=== PATIENT | female | born 1935 | race Caucasian/White ===

== ENCOUNTER 2016-10-08 21:12 | Inpatient (IN) | payer MEDICARE, MEDICAID ==
[~2016-10-08] VITALS: Ht 139.7 cm; Wt 52.8 kg
[~2016-10-08 21:12] MED LIST: ACET-1600 PO; ALBU2.5V NPPB; ALBU90AE INH; ASPI-496 PO; ASPI-621 PO; CLON1PAT9 TD; FISH OIL OMEGA1 EACH PO; FURO-92 PO; GUAI-103 PO; HYDR25CA PO; LACT1CAP4 PO; MOME17SP NAS; MOME220A INH; NPH,100V SC; NPH,100V SQ; PRED10TA PO; PRED2.5T PO; SPIR25TA PO
[2016-10-08 22:08] LABS: BLOOD UREA NITROGEN 27 mg/dL (7-18)
[2016-10-08] MEDS ORDERED: FURO-93 PO (22:14)
[2016-10-08] MEDS ORDERED: LISI-167 PO (22:14)
[2016-10-08] MEDS ORDERED: ALBU18HF INH (22:14)
[2016-10-08] MEDS ORDERED: INSU100I13 SQ-INSULIN (22:14)
[2016-10-08] MEDS ORDERED: MOME13HF3 INH (22:14)
[2016-10-08] MEDS ORDERED: ALBU0.63 NEB (22:14)
[2016-10-08 22:17] LABS: IS PT STATUS REG ER OR PRE ER? YES
[2016-10-08] MEDS ORDERED: SODIUM CHLORIDE 0.9% 1,000ML IVBOLUS ONE (23:00)
[2016-10-08] MEDS ORDERED: SODIUM CHLORIDE 0.9% 1,000 ML IV ONE (23:13)
[2016-10-08] MEDS ORDERED: ACETAMINOPHEN 325 MG TABLET PO PRN (23:30)
[2016-10-08] MEDS ORDERED: ONDANSETRON 2MG/ML, 2ML IVPush PRN (23:30)
[2016-10-08] MEDS ORDERED: ONDANSETRON ODT 4 MG PO PRN (23:30)
[2016-10-08] MEDS ORDERED: MORPHINE SULFATE 4 MG/ML, 1ML IVPush PRN (23:30)
[2016-10-09 00:31] VITALS: BP 140/77
[2016-10-09] MEDS: methylPREDNISolone SOD SUCC 40 MG/ML IVPush SCH ×2 (01:22→15:07)
[2016-10-09] MEDS: FUROSEMIDE 20 MG/2 ML IV SCH ×2 (01:22→10:14)
[2016-10-09] MEDS: GUAIFENESIN/DM 200-20MG, 10ML UDC PO PRN (01:25)
[2016-10-09 01:57] LABS: BLOOD UREA NITROGEN 25 mg/dL (7-18)
[2016-10-09 02:45] VITALS: BP 113/78
[2016-10-09 04:35] LABS: IS PT STATUS REG ER OR PRE ER? NO
[2016-10-09] MEDS ORDERED: ALBUTEROL SULFATE 2.5 MG/3 ML NPPB PRN (06:00)
[2016-10-09 07:40] VITALS: BP 145/95
[2016-10-09] MEDS: PANTOPROZOLE 40MG TABLET PO SCH (08:49)
[2016-10-09 08:51] LABS: IS PT STATUS REG ER OR PRE ER? NO
[2016-10-09] MEDS: GUAIFENESIN ER 600 MG TABLET PO SCH ×2 (10:14→20:24)
[2016-10-09] MEDS: SPIRONOLACTONE 25 MG TABLET PO SCH (10:14)
[2016-10-09] MEDS ORDERED: MAGNESIUM SULFATE PMX 2GM/50ML 50 ML IV ONE (14:30)
[2016-10-09] MEDS: CEFTRIAXONE PMX 1GM/50ML 50 ML IV SCH (15:07)
[2016-10-09] MEDS: AZITHROMYCIN 500 MG in SODIUM CHLORIDE 0.9% 250 ML IV SCH (16:01)
[2016-10-09] MEDS: INSULIN ASPART 100 UNITS/ML, PEN SQ-INSULIN SCH ×2 (18:46→21:54)
[2016-10-09 19:39] VITALS: BP 151/93
[2016-10-10] MEDS: methylPREDNISolone SOD SUCC 40 MG/ML IVPush SCH ×2 (00:11→12:11)
[2016-10-10 02:26] VITALS: BP 132/77
[2016-10-10 06:17] LABS: IS PT STATUS REG ER OR PRE ER? NO
[2016-10-10 06:27] LABS: ASPARTATE AMINO TRANSFERASE 27 U/L (15-37); BLOOD UREA NITROGEN 39 mg/dL (7-18)
[2016-10-10 07:52] VITALS: BP 127/72
[2016-10-10] MEDS: INSULIN ASPART 100 UNITS/ML, PEN SQ-INSULIN SCH ×4 (08:11→21:18)
[2016-10-10] MEDS: PANTOPROZOLE 40MG TABLET PO SCH (08:11)
[2016-10-10] MEDS: GUAIFENESIN ER 600 MG TABLET PO SCH ×2 (08:11→21:17)
[2016-10-10] MEDS: SPIRONOLACTONE 25 MG TABLET PO SCH (08:11)
[2016-10-10] MEDS: DOCUSATE 100 MG CAPSULE PO PRN (08:17)
[2016-10-10] MEDS: CEFTRIAXONE PMX 1GM/50ML 50 ML IV SCH (12:11)
[2016-10-10] MEDS: AZITHROMYCIN 500 MG in SODIUM CHLORIDE 0.9% 250 ML IV SCH (13:31)
[2016-10-10 14:00] VITALS: BP 107/69
[2016-10-10 19:05] VITALS: BP 136/74
[2016-10-10] MEDS: TEMAZEPAM 15 MG CAPSULE PO PRN (22:55)
[2016-10-11 02:50] VITALS: BP 110/74
[2016-10-11 06:00] LABS: BLOOD UREA NITROGEN 40 mg/dL (7-18)
[2016-10-11 06:18] LABS: IS PT STATUS REG ER OR PRE ER? NO
[2016-10-11] MEDS: INSULIN ASPART 100 UNITS/ML, PEN SQ-INSULIN SCH ×4 (08:09→22:12)
[2016-10-11] MEDS: PANTOPROZOLE 40MG TABLET PO SCH (08:09)
[2016-10-11] MEDS: SPIRONOLACTONE 25 MG TABLET PO SCH (08:09)
[2016-10-11] MEDS: GUAIFENESIN ER 600 MG TABLET PO SCH ×2 (08:10→22:11)
[2016-10-11 08:18] VITALS: BP 125/72
[2016-10-11] MEDS ORDERED: REGADENOSON 0.4 MG/5 ML SYRINGE ONE (09:17)
[2016-10-11] MEDS: AZITHROMYCIN 500 MG in SODIUM CHLORIDE 0.9% 250 ML IV SCH (12:19)
[2016-10-11] MEDS ORDERED: cloniDINE 0.3MG PATCH TD SCH (13:30)
[2016-10-11] MEDS ORDERED: LISINOPRIL 10 MG TABLET PO PRN (13:30)
[2016-10-11 14:11] VITALS: BP 94/65
[2016-10-11] MEDS: CEFTRIAXONE PMX 1GM/50ML 50 ML IV SCH (14:24)
[2016-10-11] MEDS: GUAIFENESIN/DM 200-20MG, 10ML UDC PO PRN (16:39)
[2016-10-11 20:59] VITALS: BP 135/86
[2016-10-11] MEDS: TEMAZEPAM 15 MG CAPSULE PO PRN (22:11)
[2016-10-11] MEDS: DOCUSATE 100 MG CAPSULE PO PRN (22:12)
[2016-10-12 02:41] VITALS: BP 125/75
[2016-10-12 07:54] VITALS: BP 139/84
[2016-10-12] MEDS: PANTOPROZOLE 40MG TABLET PO SCH (08:46)
[2016-10-12] MEDS: INSULIN ASPART 100 UNITS/ML, PEN SQ-INSULIN SCH ×3 (08:46→16:40)
[2016-10-12] MEDS: SPIRONOLACTONE 25 MG TABLET PO SCH (08:46)
[2016-10-12] MEDS: GUAIFENESIN ER 600 MG TABLET PO SCH (08:46)
[2016-10-12] MEDS ORDERED: FUROSEMIDE 20 MG TABLET PO SCH (09:00)
[2016-10-12] MEDS ORDERED: ASPIRIN 81 MG TABLET EC PO SCH (09:00)
[2016-10-12] MEDS ORDERED: CEFDINIR 300 MG CAPSULE PO SCH (10:00)
[2016-10-12] MEDS ORDERED: AZITHROMYCIN 250 MG TABLET PO SCH ×2 (10:00)
[2016-10-12 11:08] LABS: BLOOD UREA NITROGEN 35 mg/dL (7-18)
[2016-10-12] MEDS ORDERED: CEFD300C37 PO (13:55)
[2016-10-12] MEDS ORDERED: AZIT250T89 PO (13:55)
[2016-10-12] MEDS ORDERED: PRED20TA PO (13:55)
[2016-10-12] MEDS ORDERED: SPIR25TA PO (13:57)
[2016-10-12 14:31] VITALS: BP 123/80
== END 2016-10-12 18:50 | disposition home or self-care (01) | DRG 871 ==
LOC: ED 21:29 → EDIP 23:13 → 4EST 10-09 00:13
PROVIDERS: ADMIT Internal Medicine; ATTEND Internal Medicine
DX: A41.9 Sepsis, unspecified organism (principal); J96.20 Acute and chronic respiratory failure, unspecified whether with hypoxia or hypercapnia; B46.5 Mucormycosis, unspecified; J15.9 Unspecified bacterial pneumonia; I21.4 Non-ST elevation (NSTEMI) myocardial infarction; J44.0 Chronic obstructive pulmonary disease with (acute) lower respiratory infection; E44.0 Moderate protein-calorie malnutrition; J44.1 Chronic obstructive pulmonary disease with (acute) exacerbation; I50.32 Chronic diastolic (congestive) heart failure; E11.65 Type 2 diabetes mellitus with hyperglycemia; E78.5 Hyperlipidemia, unspecified; E87.6 Hypokalemia; I27.2 Other secondary pulmonary hypertension; G47.33 Obstructive sleep apnea (adult) (pediatric); I08.0 Rheumatic disorders of both mitral and aortic valves; I11.0 Hypertensive heart disease with heart failure; I25.5 Ischemic cardiomyopathy; J84.10 Pulmonary fibrosis, unspecified; M19.90 Unspecified osteoarthritis, unspecified site; Z99.81 Dependence on supplemental oxygen; Z88.0 Allergy status to penicillin; Z82.49 Family history of ischemic heart disease and other diseases of the circulatory system; I25.10 Atherosclerotic heart disease of native coronary artery without angina pectoris
CPT/HCPCS: 36415; 71275; 78452; 80048; 80053; 82040; 82962; 83036; 83605; 83735; 84145; 84484; 85025; 87040; 87070; 87205; 93005; 93017; 93306; 96360; J0456; J0696; J1815; J2785; A9502; C9898; J1940; J2920; J3475; J7030; J7050; J7512